=== PATIENT | male | born 1975 | race Caucasian/White ===

== ENCOUNTER 2018-05-28 11:28 | Emergency (ER) | payer OTHER ==
[2018-05-28 11:33] VITALS: BP 121/82; PULSE 81; RESP 20; TEMP 98.2
[2018-05-28] MEDS ORDERED: KETOROLAC 60 MG/2 ML VIAL IM STA ×3 (11:58→12:19)
[2018-05-28] MEDS ORDERED: ORPHENADRINE 30 MG/ML 2 ML VIAL IM STA (11:58)
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
== END 2018-05-28 13:55 | disposition home or self-care (01) ==
LOC: EC 11:28
DX: S39.012A Strain of muscle, fascia and tendon of lower back, initial encounter (principal); F17.200 Nicotine dependence, unspecified, uncomplicated; Z88.0 Allergy status to penicillin; V49.9XXA Car occupant (driver) (passenger) injured in unspecified traffic accident, initial encounter; Y92.410 Unspecified street and highway as the place of occurrence of the external cause
CPT/HCPCS: 72110; 99284; 96372 ×2; J2360; J1885

== ENCOUNTER → 2018-09-09 | Outpatient (CLI) | payer OTHER ==
--- NOTE | 2018-09-09 14:39 | MR ---
EXAMINATION TYPE: MR swain/shavonne wo con DATE OF EXAM: 09/09/2018 1:10 PM COMPARISON: NONE HISTORY: Radiculopathy Multiplanar MultiSpin echo imaging of the cervical spine was performed. Comparison: none C2-C3: No evidence for degenerative disc disease. No disc bulge/herniation or protrusion. No Canal stenosis. Foramina are patent bilaterally. C3-C4: No evidence for degenerative disc disease. No disc bulge/herniation or protrusion. No Canal stenosis. Foramina are patent bilaterally. C4-C5: No evidence for degenerative disc disease. No disc bulge/herniation or protrusion. No Canal stenosis. Foramina are patent bilaterally. C5-C6: Moderate disc desiccation. Posterocentral disc protrusion at this level with effacement ventra l thecal sac. No evidence for cord contact or central stenosis. Foramina are patent. C6-C7: Mild disc desiccation with posterior central disc bulge mild in degree. Minimal effacement t[place] tral thecal sac. Degenerative change cervical apophyseal joints with left-sided foraminal encroachmen t. C7-T1: No evidence for degenerative disc disease. No disc bulge/herniation or protrusion. No Canal stenosis. Foramina are patent bilaterally. Cervical segments are intact. There is normal alignment. Cervical spinal cord is of normal signal. Craniovertebral junction relationships are within normal limits. IMPRESSION: 1. Posterocentral disc protrusion at C5-6. 2. Mild disc bulge and left foraminal encroachment at C6-7. EXAMINATION TYPE: MR conrad wo con DATE OF EXAM: 09/09/2018 1:10 PM COMPARISON: NONE HISTORY: Radiculopathy Multiplanar, MultiSpin echo imaging of the lumbar spine was performed. L1-L2: Normal disc appearance without desiccation. No herniation, protrusion or disc bulging. No ca nal stenosis is present. Foramina are patent bilaterally. L2-L3: Mild to moderate disc desiccation. Broad-based posterior disc bulge effaces the ventral thecal sac. Partially encapsulating spur noted. There is effacement of the ventral thecal sac with bilatera l lateral recess stenosis and borderline central stenosis. Foramina are patent bilaterally. L3-L4: Normal disc appearance without desiccation. No herniation, protrusion or disc bulging. No ca nal stenosis is present. Foramina are patent bilaterally. L4-L5: Mild disc desiccation with posterior central disc bulge mild degree and small annular tear. No manish herniation. No central stenosis. Foramina are patent. L5-S1: Mild disc desiccation with posterior central disc herniation. Disc material is noted posterior to the S1 vertebral segment. No evidence for central stenosis or lateral recess stenosis. Foramina a re patent. Lumbar segments are intact. No paraspinal masses are identified. Conus medullaris has a normal appe arance. IMPRESSION: 1. Degenerative disc disease as noted. 2. Lateral recess stenosis and borderline to mild central stenosis at L2-3. 3. Posterocentral disc herniation at L5-S1 as discussed.
== END ==
LOC: RADMRIMAIN 11:51
PROVIDERS: ATTEND Neurological Surgery
DX: M48.02 Spinal stenosis, cervical region (principal); M50.122 Cervical disc disorder at C5-C6 level with radiculopathy; M48.061 Spinal stenosis, lumbar region without neurogenic claudication; M51.17 Intervertebral disc disorders with radiculopathy, lumbosacral region; M51.16 Intervertebral disc disorders with radiculopathy, lumbar region
CPT/HCPCS: 72141; 72148

== ENCOUNTER → 2020-11-11 | Outpatient (CLI) | payer OTHER ==
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
== END | disposition home or self-care (01) ==
LOC: RADMRIMAIN 06:04
PROVIDERS: ATTEND Neurological Surgery
DX: M48.061 Spinal stenosis, lumbar region without neurogenic claudication (principal); M51.26 Other intervertebral disc displacement, lumbar region
CPT/HCPCS: 72148

== ENCOUNTER 2021-11-22 02:36 | Observation (INO) | payer OTHER ==
[2021-11-22] MEDS ORDERED: MAG HYDROX/AL HYDROX/SIMETH 30 ML, HYOSCYAMINE ELIXIR 10 ML, LIDOCAINE VISCOUS 2% 10 ML PO STA ×6 (03:53→05:31)
--- NOTE | 2021-11-22 03:59 | ED ---
GI Bleed HPI - General Chief complaint: GI Bleed Stated complaint: Rectal Bleeding, Abdominal Pain Time Seen by Provider: 11/22/21 02:58 Source: patient Mode of arrival: ambulatory - History of Present Illness Initial comments: This patient is a 46-year-old man who presents with complaint of passing dark red blood with bowel movements. He states he was in usual state of health until Saturday when he noticed he was having some burning epigastric pain. He tried taking Nexium for the discomfort but it continued to be present. Over the course of last night and today he has had bowel movements with some dark blood that becomes red after sitting in the water the commode. He states this is identical to previous ulcer that he had about 7 years ago. No signs or symptoms of ane tawana. There is no chest pain, dyspnea, lightheadedness, palpitations or syncope. MD complaint: gross hematemesis -: days(s) Quality: burning Consistency: constant Improves with: none Worsens with: none Context: history of GI bleed Associated Symptoms: denies other symptoms - Related Data Home Medications Medication Instructions Recorded Confirmed Calcium Carbonate [Tums] 1,000 mg PO TID PRN 11/22/21 11/22/21 Esomeprazole Magnesium [NexIUM 20 mg PO DAILY 11/22/21 11/22/21 24Hr] Pepto Tabs 1 - 2 tab PO Q4H PRN 11/22/21 11/22/21 Allergies Allergy/AdvReac Type Severity Reaction Status Date / Time Penicillins Allergy Unknown Verified 11/22/21 06:26 Childhood Review of Systems ROS Statement: Those systems with pertinent positive or pertinent negative responses have been documented in the HPI. ROS Other: All systems not noted in ROS Statement are negative. Constitutional: Denies: fever, chills Respiratory: Denies: cough, dyspnea Cardiovascular: Denies: chest pain, palpitations, edema, syncope Gastrointestinal: Reports: abdominal pain, melena. Denies: nausea, vomiting, diarrhea, constipation, hematemesis, hematochezia Genitourinary: Denies: dysuria, hematuria Musculoskeletal: Denies: back pain Skin: Denies: rash Neurological: Denies: headache, weakness, numbness Hematological/Lymphatic: Denies: easy bleeding Past Medical History Past Medical History: GERD/Reflux, Musculoskeletal Disorder Additional Past Medical History / Comment(s): lack of appetite,epigastric pain more towards left-has been taking pine tree oil-thinks has helped, well on property tested positive for e-coli & chloroform recently,hx. bleeding ulcer 20 yrs. ago, History of Any Multi-Drug Resistant Organisms: None Reported Past Surgical History: Appendectomy, Hernia Repair Additional Past Surgical History / Comment(s): endoscopy Past Anesthesia/Blood Transfusion Reactions: No Reported Reaction, Motion Sickness Past Psychological History: No Psychological Hx Reported Smoking Status: Former smoker Past Alcohol Use History: None Reported Past Drug Use History: Marijuana - Past Family History Mother Family Medical History: No Reported History General Exam General appearance: alert, in no apparent distress Head exam: Present: atraumatic, normocephalic Eye exam: Present: normal appearance. Absent: scleral icterus, conjunctival injection ENT exam: Present: normal oropharynx Neck exam: Present: normal inspection Respiratory exam: Present: normal lung sounds bilaterally. Absent: respiratory distress, wheezes, rales, rhonchi, stridor Cardiovascular Exam: Present: regular rate, normal rhythm, normal heart sounds. Absent: systolic murmur, diastolic murmur, rubs, gallop GI/Abdominal exam: Present: soft. Absent: distended, tenderness, guarding, rebound, rigid, mass Extremities exam: Present: normal inspection, normal capillary refill. Absent: pedal edema, calf tenderness Back exam: Present: normal inspection. Absent: CVA tenderness (R), CVA tenderness (L) Skin exam: Present: warm, dry, intact, normal color. Absent: rash Course Vital Signs 11/22/21 11/22/21 02:39 05:08 Temperature 99.1 F Pulse Rate 61 65 Respiratory 19 18 Rate Blood Pressure 127/79 110/65 O2 Sat by Pulse 98 95 Oximetry Medical Decision Making - Lab Data Result diagrams: 11/22/21 03:46 11/22/21 03:46 Lab Results 11/22/21 11/22/21 11/22/21 Range/Units 03:40 03:46 03:46 WBC 11.3 H (3.8-10.6) k/uL RBC 4.63 (4.30-5.90) m/uL Hgb 13.4 (13.0-17.5) gm/dL Hct 40.4 (39.0-53.0) % MCV 87.1 (80.0-100.0) fL MCH 29.0 (25.0-35.0) pg MCHC 33.3 (31.0-37.0) g/dL RDW 12.3 (11.5-15.5) % Plt Count 221 (150-450) k/uL MPV 7.7 Neutrophils % 66 % Lymphocytes % 25 % Monocytes % 6 % Eosinophils % 1 % Basophils % 1 % Neutrophils # 7.4 (1.3-7.7) k/uL Lymphocytes # 2.9 (1.0-4.8) k/uL Monocytes # 0.7 (0-1.0) k/uL Eosinophils # 0.1 (0-0.7) k/uL Basophils # 0.1 (0-0.2) k/uL APTT 23.2 (22.0-30.0) sec Sodium (137-145) mmol/L Potassium (3.5-5.1) mmol/L Chloride (98-107) mmol/L Carbon Dioxide (22-30) mmol/L Anion Gap mmol/L BUN (9-20) mg/dL Creatinine (0.66-1.25) mg/dL Est GFR (CKD-EPI)AfAm (>60 ml/min/1.73 sqM) Est GFR (CKD-EPI)NonAf (>60 ml/min/1.73 sqM) Glucose (74-99) mg/dL Calcium (8.4-10.2) mg/dL Total Bilirubin (0.2-1.3) mg/dL AST (17-59) U/L ALT (4-49) U/L Alkaline Phosphatase (38-126) U/L Troponin I (0.000-0.034) ng/mL Total Protein (6.3-8.2) g/dL Albumin (3.5-5.0) g/dL Blood Type Blood Type Confirm O Positive Blood Type Recheck Bld Type Recheck Status Antibody Screen Spec Expiration Date 11/22/21 11/22/21 11/22/21 Range/Units 03:46 03:46 03:46 WBC (3.8-10.6) k/uL RBC (4.30-5.90) m/uL Hgb (13.0-17.5) gm/dL Hct (39.0-53.0) % MCV (80.0-100.0) fL MCH (25.0-35.0) pg MCHC (31.0-37.0) g/dL RDW (11.5-15.5) % Plt Count (150-450) k/uL MPV Neutrophils % % Lymphocytes % % Monocytes % % Eosinophils % % Basophils % % Neutrophils # (1.3-7.7) k/uL Lymphocytes # (1.0-4.8) k/uL Monocytes # (0-1.0) k/uL Eosinophils # (0-0.7) k/uL Basophils # (0-0.2) k/uL APTT (22.0-30.0) sec Sodium 134 L (137-145) mmol/L Potassium 3.8 (3.5-5.1) mmol/L Chloride 97 L (98-107) mmol/L Carbon Dioxide 26 (22-30) mmol/L Anion Gap 11 mmol/L BUN 22 H (9-20) mg/dL Creatinine 0.98 (0.66-1.25) mg/dL Est GFR (CKD-EPI)AfAm >90 (>60 ml/min/1.73 sqM) Est GFR (CKD-EPI)NonAf >90 (>60 ml/min/1.73 sqM) Glucose 111 H (74-99) mg/dL Calcium 9.2 (8.4-10.2) mg/dL Total Bilirubin 0.9 (0.2-1.3) mg/dL AST 21 (17-59) U/L ALT 17 (4-49) U/L Alkaline Phosphatase 63 (38-126) U/L Troponin I <0.012 (0.000-0.034) ng/mL Total Protein 7.7 (6.3-8.2) g/dL Albumin 4.7 (3.5-5.0) g/dL Blood Type O Positive Blood Type Confirm Blood Type Recheck No Previous Record Bld Type Recheck Status CABO Indicated Antibody Screen NEGATIVE Spec Expiration Date 11/25/20212345 Disposition Clinical Impression: GI bleeding Disposition: ADMITTED IP TO THIS [facility] Condition: Good Instructions (If sedation given, give patient instructions): Gastrointestinal Bleeding (ED) Is patient prescribed a controlled substance at d/c from ED?: No Referrals: None,Stated [Primary Care Provider] - 1-2 days
[2021-11-22 04:07] LABS: Basophils # (A) 0.1 k/uL (0-0.2); Basophils % (A) 1 %; Eosinophils # (A) 0.1 k/uL (0-0.7); Eosinophils % (A) 1 %; HCT 40.4 % (39.0-53.0); HGB 13.4 gm/dL (13.0-17.5); Lymphocytes # (A) 2.9 k/uL (1.0-4.8); Lymphocytes % (A) 25 %; MCHC 33.3 g/dL (31.0-37.0); MCV 87.1 fL (80.0-100.0); Mean Platelet Volume 7.7; Monocytes # (A) 0.7 k/uL (0-1.0); Monocytes % (A) 6 %; Neutrophils # (A) 7.4 k/uL (1.3-7.7); Neutrophils % (A) 66 %; Platelet Count 221 k/uL (150-450); RBC 4.63 m/uL (4.30-5.90); RDW 12.3 % (11.5-15.5); WBC 11.3 k/uL (3.8-10.6)
[2021-11-22 04:24] LABS: ALT 17 U/L (4-49); AST 21 U/L (17-59); African American GFR (CKD) >90 (>60 ml/min/1.73 sqM); Albumin 4.7 g/dL (3.5-5.0); Alkaline Phosphatase 63 U/L (38-126); Anion Gap 11 mmol/L; Blood Urea Nitrogen 22 mg/dL (9-20); Calcium 9.2 mg/dL (8.4-10.2); Carbon Dioxide 26 mmol/L (22-30); Chloride 97 mmol/L (98-107); Glucose 111 mg/dL (74-99); Non-African American GFR(CKD) >90 (>60 ml/min/1.73 sqM); Potassium 3.8 mmol/L (3.5-5.1); Sodium 134 mmol/L (137-145); Total Bilirubin 0.9 mg/dL (0.2-1.3); Total Protein 7.7 g/dL (6.3-8.2)
[2021-11-22] MEDS ORDERED: MORPHINE SULFATE 4 MG/ML SYRINGE IV STA (04:55)
[2021-11-22] MEDS ORDERED: PANTOPRAZOLE 40 MG/10 ML VIAL IVP STA (05:43)
[2021-11-22] MEDS ORDERED: ONDANSETRON 4 MG/2 ML VIAL IVP PRN (05:44)
[2021-11-22] MEDS ORDERED: NALOXONE 0.4 MG/ML 1 ML VIAL IV PRN (05:44)
[2021-11-22] MEDS: SODIUM CHLORIDE 0.9% 1,000 ML IV SCH ×3 (06:18→16:25)
[2021-11-22] MEDS: PANTOPRAZOLE 40 MG/10 ML VIAL IV SCH (09:17)
--- NOTE | 2021-11-22 09:23 | P.GSHP ---
History of Present Illness H&P Date: 11/22/21 CHIEF COMPLAINT: Dark bloody stools per rectum HISTORY OF PRESENT ILLNESS: This is a 46-year-old male with a known history of a duodenal bulb ulcer and prior history of H. pylori. He presents to the hospital with complaints of dark bloody bowel movements. Patient reports that he had 3 dark stools yesterday and one again this morning. He has been having dark stools for about 3 days. He also reports nausea and vomiting. Reports having some hematemesis. Last episode vomiting was yesterday. Also complaining of some difficulty swallowing over the last 2-3 months. He noted that he has troub le swallowing more of solid food consistencies such as steak. But sometimes he has difficulty with liquids. He complains of burning sensation in the epigastric area that becomes sharp. After he took Nexium and then received Protonix in the ER the pain is improved. He denies any NSAID use. Denies being on any blood thinners. Last EGD was in 2017 that revealed hiatal hernia with esophagitis likely an ACL Preet esophagitis. Gastritis and duodenal bulb ulcer not actively bleeding. Patient's hemoglobin is stable at 13.4. Repeat CBC pending. Patient admitted to the hospital for GI bleed. PAST MEDICAL HISTORY: See list. PAST SURGICAL HISTORY: See list. MEDICATIONS: See list. ALLERGIES: See list. SOCIAL HISTORY: No illicit drug use. Denies any alcohol use REVIEW OF SYSTEMS: CONSTITUTIONAL: Denies fever or chills. HEENT: Denies blurred vision, vision changes, or eye pain. Denies hemoptysis CARDIOVASCULAR: Denies chest pain or pressure. RESPIRATORY: No shortness of breath. GASTROINTESTINAL: See HPI for pertinent findings HEMATOLOGIC: Denies bleeding disorders. GENITOURINARY: Denies any blood in urine or increased urinary frequency. SKIN: Denies pruitis. Denies rash. PHYSICAL EXAM: VITAL SIGNS: Reviewed GENERAL: Well-developed in no acute distress. HEENT: No sclera icterus. Extraocular movements grossly intact. Moist buccal mucosa. Head is atraumatic, normocephalic. No nasal drainage. ABDOMEN: Soft. Nondistended. Nontender NEUROLOGIC: Alert and oriented. Cranial nerves II through XII grossly intact. LABORATORY DATA: WBC is 11.3 hemoglobin 13.4 platelets 221 sodium is 134 potassium is 3.8 creatinine 0.98 Troponin negative IMAGING: ASSESSMENT: 1. Acute GI bleed with dark bloody stools and episodes of hematemesis 2. Prior history of duodenal bulb ulcer and H. pylori PLAN: -Patient scheduled for EGD with Dr. 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 Signing provider agrees with the documented findings, assessment, and plan of care. Past Medical History Past Medical History: GERD/Reflux, Musculoskeletal Disorder Additional Past Medical History / Comment(s): lack of appetite,epigastric pain more towards left-has been taking pine tree oil-thinks has helped, well on property tested positive for e-coli & chloroform recently,hx. bleeding ulcer 20 yrs. ago, History of Any Multi-Drug Resistant Organisms: None Reported Past Surgical History: Appendectomy, Hernia Repair Additional Past Surgical History / Comment(s): endoscopy Past Anesthesia/Blood Transfusion Reactions: No Reported Reaction, Motion Sickness Past Psychological History: No Psychological Hx Reported Smoking Status: Former smoker Past Alcohol Use History: None Reported Past Drug Use History: Marijuana - Past Family History Mother Family Medical History: No Reported History Medications and Allergies Home Medications Medication Instructions Recorded Confirmed Type Calcium Carbonate [Tums] 1,000 mg PO TID PRN 11/22/21 11/22/21 History Esomeprazole Magnesium [NexIUM 20 mg PO DAILY 11/22/21 11/22/21 History 24Hr] Pepto Tabs 1 - 2 tab PO Q4H PRN 11/22/21 11/22/21 History Allergies Allergy/AdvReac Type Severity Reaction Status Date / Time Penicillins Allergy Unknown Verified 11/22/21 06:26 Childhood Surgical - Exam Vital Signs Temp Pulse Resp BP Pulse Ox 99.1 F 61 19 127/79 98 11/22/21 02:39 11/22/21 02:39 11/22/21 02:39 11/22/21 02:39 11/22/21 02:39 Results - Labs 11/22/21 03:46 11/22/21 03:46 Abnormal Lab Results - Last 24 Hours (Table) 11/22/21 11/22/21 Range/Units 03:46 03:46 WBC 11.3 H (3.8-10.6) k/uL Sodium 134 L (137-145) mmol/L Chloride 97 L (98-107) mmol/L BUN 22 H (9-20) mg/dL Glucose 111 H (74-99) mg/dL Diabetes panel 11/22/21 Range/Units 03:46 Sodium 134 L (137-145) mmol/L Potassium 3.8 (3.5-5.1) mmol/L Chloride 97 L (98-107) mmol/L Carbon Dioxide 26 (22-30) mmol/L BUN 22 H (9-20) mg/dL Creatinine 0.98 (0.66-1.25) mg/dL Glucose 111 H (74-99) mg/dL Calcium 9.2 (8.4-10.2) mg/dL AST 21 (17-59) U/L ALT 17 (4-49) U/L Alkaline Phosphatase 63 (38-126) U/L Total Protein 7.7 (6.3-8.2) g/dL Albumin 4.7 (3.5-5.0) g/dL Calcium panel 11/22/21 Range/Units 03:46 Calcium 9.2 (8.4-10.2) mg/dL Albumin 4.7 (3.5-5.0) g/dL Pituitary panel 11/22/21 Range/Units 03:46 Sodium 134 L (137-145) mmol/L Potassium 3.8 (3.5-5.1) mmol/L Chloride 97 L (98-107) mmol/L Carbon Dioxide 26 (22-30) mmol/L BUN 22 H (9-20) mg/dL Creatinine 0.98 (0.66-1.25) mg/dL Glucose 111 H (74-99) mg/dL Calcium 9.2 (8.4-10.2) mg/dL Adrenal panel 11/22/21 Range/Units 03:46 Sodium 134 L (137-145) mmol/L Potassium 3.8 (3.5-5.1) mmol/L Chloride 97 L (98-107) mmol/L Carbon Dioxide 26 (22-30) mmol/L BUN 22 H (9-20) mg/dL Creatinine 0.98 (0.66-1.25) mg/dL Glucose 111 H (74-99) mg/dL Calcium 9.2 (8.4-10.2) mg/dL Total Bilirubin 0.9 (0.2-1.3) mg/dL AST 21 (17-59) U/L ALT 17 (4-49) U/L Alkaline Phosphatase 63 (38-126) U/L Total Protein 7.7 (6.3-8.2) g/dL Albumin 4.7 (3.5-5.0) g/dL
[2021-11-22 12:37] VITALS: RESP 16
[2021-11-22] MEDS ORDERED: PROPOFOL 10 MG/ML 20 ML VIAL IV ONE (12:53)
[2021-11-22] MEDS ORDERED: LIDOCAINE 2% INJ 20 MG/ML (2 ML VIAL) ONE (12:53)
[2021-11-22] MEDS ORDERED: KETOROLAC 15 MG/ML 1 ML VIAL ONE (12:53)
[2021-11-22] MEDS ORDERED: IV FLUID CONTINUATION 1,000 ML IV ONE ×2 (12:54)
--- NOTE | 2021-11-22 13:18 | P.OP ---
Date of Procedure: 11/22/21 Preoperative Diagnosis: GI bleed Postoperative Diagnosis: GI bleed Procedure(s) Performed: Duodenal ulcer Anesthesia: MAC Surgeon: Juan Diego York Pathology: other (Duodenum) Condition: stable Disposition: PACU Description of Procedure: The patient's placed on the endoscopy table in the lateral position. He received IV sedation. The gastroscope placed oropharynx passed in the esophagus and stomach. Scope was then placed through the pylorus. The first and second portion duodenum was examined. There was evidence of a duodenal ulcer. There was a large ulcer base that was not bleeding seen. Scope was brought back and the antrum this was mildly inflamed. Biopsies performed. Scope was unretrofl exed and remainder the stomach appeared normal. The GE junction was at 40 cm the distal esophagus appeared normal. The proximal esophagus appeared normal. Scope was withdrawn for patient.
[2021-11-22] MEDS: ACETAMINOPHEN TAB 325 MG TAB PO PRN ×2 (16:23→22:18)
[2021-11-23 00:03] LABS: Basophils % (A) 0 %; Eosinophils # (A) 0.1 k/uL (0-0.7); Eosinophils % (A) 2 %; HCT 35.8 % (39.0-53.0); Lymphocytes # (A) 2.6 k/uL (1.0-4.8); Lymphocytes % (A) 33 %; MCH 29.5 pg (25.0-35.0); MCHC 33.6 g/dL (31.0-37.0); MCV 87.8 fL (80.0-100.0); Mean Platelet Volume 7.5; Monocytes # (A) 0.4 k/uL (0-1.0); Monocytes % (A) 5 %; Neutrophils # (A) 4.5 k/uL (1.3-7.7); Neutrophils % (A) 57 %; Platelet Count 185 k/uL (150-450); RBC 4.08 m/uL (4.30-5.90); RDW 12.9 % (11.5-15.5); WBC 7.8 k/uL (3.8-10.6)
[2021-11-23 04:20] VITALS: BP 113/61; PULSE 63; TEMP 98.2
[2021-11-23] MEDS: SODIUM CHLORIDE 0.9% 1,000 ML IV SCH ×2 (06:45→08:35)
[2021-11-23] MEDS: PANTOPRAZOLE 40 MG/10 ML VIAL IV SCH (08:34)
--- NOTE | 2021-11-23 14:44 | P.DS ---
Providers Date of admission: 11/22/21 05:44 Expected date of discharge: 11/23/21 Attending physician: Juan Diego Che Primary care physician: Stated None Hospital Course: Discharge diagnosis 1. Acute GI bleed secondary to Large duodenal ulcer 2. Status post EGD with large duodenal ulcer not actively bleeding Hospital course This is a 46-year-old male who presented to the hospital with dark bloody bowel movements and episodes of hematemesis. He complains of burning sensation in the epigastric area. Patient status post EGD revealing a large duodenal ulcer that was not actively bleeding. Patient's hemoglobin remained stable. He has had decrease in the amount and frequency of dark bloody bowel movements. Per Dr. Che this is likely old blood. Patient seen and examined by Dr. che and he has cleared him for discharge. Patient has been educated to avoid NSAID use or aspirin. He can continue on a regular diet. Patient will be discharged with Protonix. Patient is up and ambulate in. He is tolerating diet. He reports improvement in his symptoms. He is stable for discharge. Please refer to chart for any further details. Physician Welfare Service Aide note has been reviewed by physician. Signing provider agrees with the documented findings, assessment, and plan of care. Patient Condition at Discharge: Stable Plan - Discharge Summary New Discharge Prescriptions: New Pantoprazole Sodium [Protonix] 40 mg PO DAILY #30 tab Continue Calcium Carbonate [Tums] 1,000 mg PO TID PRN PRN Reason: Gi Upset Pepto Tabs 1 - 2 tab PO Q4H PRN PRN Reason: Gi Upset Discontinued Esomeprazole Magnesium [NexIUM 24Hr] 20 mg PO DAILY Discharge Medication List Calcium Carbonate [Tums] 1,000 mg PO TID PRN 11/22/21 [History] Pepto Tabs 1 - 2 tab PO Q4H PRN 11/22/21 [History] Pantoprazole Sodium [Protonix] 40 mg PO DAILY #30 tab 11/23/21 [Rx] Follow up Appointment(s)/Referral(s): None,Stated [Primary Care Provider] - 1-2 days Juan Diego Che MD [STAFF PHYSICIAN] - 1 Week Patient Instructions/Handouts: Gastrointestinal Bleeding (ED) Activity/Diet/Wound Care/Special Instructions: No NSAIDs such as Motrin, ibuprofen, Aleve or naproxen No aspirin Okay to use Tylenol OTC as needed for pain Discharge Disposition: HOME SELF-CARE
[2021-11-23 16:43] LABS: HCT 37.6 % (39.0-53.0); HGB 12.8 gm/dL (13.0-17.5); MCH 30.1 pg (25.0-35.0); MCHC 34.1 g/dL (31.0-37.0); Mean Platelet Volume 8.7; Platelet Count 199 k/uL (150-450); RBC 4.27 m/uL (4.30-5.90); RDW 13.1 % (11.5-15.5); WBC 5.9 k/uL (3.8-10.6)
== END 2021-11-23 14:40 | disposition home or self-care (01) ==
LOC: EC 02:36 → 5NMEDONC 05:44
PROVIDERS: ADMIT Surgery; ATTEND Surgery
DX: K26.4 Chronic or unspecified duodenal ulcer with hemorrhage (principal); K29.50 Unspecified chronic gastritis without bleeding; K21.9 Gastro-esophageal reflux disease without esophagitis; K44.9 Diaphragmatic hernia without obstruction or gangrene; Z87.891 Personal history of nicotine dependence; Z86.19 Personal history of other infectious and parasitic diseases; Z79.899 Other long term (current) drug therapy; Z88.0 Allergy status to penicillin; Z71.9 Counseling, unspecified
CPT/HCPCS: 96374; 99285; 36415; 86900; 86901; 88305; 80053; 84484; 85025; 85027; 85730; 86850; 43239; G0378 ×2; J1885; J2704; C9113 ×2; J2001